=== PATIENT | female | born 1960 | race Caucasian/White ===

== ENCOUNTER → 2016-06-14 | Outpatient (CLI) | payer BC ==
[~2016-06-14] MED LIST: ABL5 PO; ACET650T49 PO; AMPH20CA3 PO; ARIP1TAB8 PO; BUPR200T2 PO; CALC600T14 PO; CHOL100010 PO; DICL-201 PO; GABA-112 PO; LAMO200T38 PO; PRLSR20 PO; SERT-234 PO; TRAZ100T29 PO; VITA10004 PO; WLLSR/150 PO; WLLXL/300 PO
[2016-06-14 13:27] LABS: ALT/SGPT 21 U/L (12-78); AST/SGOT 16 U/L (15-37); BLOOD UREA NITROGEN 20 mg/dl (7-18); BUN/CREATININE RATIO 18.3 (10-20); CALCIUM 8.7 mg/dl (8.5-10.1); CARBON DIOXIDE 31 mmol/L (21-32); CHLORIDE 105 mmol/L (98-107); GLUCOSE 92 mg/dl (70-99); GLUCOSE,FASTING 92 mg/dl (70-99); POTASSIUM 4.3 mmol/L (3.5-5.1); SODIUM 142 mmol/L (136-145)
[2016-06-14 13:37] LABS: ALB/GLOB RATIO 1.2 (0.9-2); ALKALINE PHOSPHATASE 71 U/L (45-117); CHOLESTEROL 251 mg/dl (0-200); CHOLESTEROL/HDL RATIO 4.3; HDL CHOLESTEROL 59 mg/dl; LDL CHOLESTEROL CALCULATED 172 mg/dl; TRIGLYCERIDES 102 mg/dl (0-150); VERY LOW DENSITY LIPOPROT CALC 20 mg/dl
== END | disposition home or self-care (01) ==
LOC: C.LAB1850 08:51
PROVIDERS: ATTEND Psychiatry & Neurology Psychiatry
DX: F33.2 Major depressive disorder, recurrent severe without psychotic features (principal); Z79.899 Other long term (current) drug therapy

== ENCOUNTER → 2016-08-05 | Outpatient (CLI) | payer BC | END | disposition home or self-care (01) | LOC: C.LAB1850 09:59 | PROVIDERS: ATTEND Obstetrics & Gynecology | DX: Z20.2 Contact with and (suspected) exposure to infections with a predominantly sexual mode of transmission (principal) ==

== ENCOUNTER → 2016-08-05 | Outpatient (CLI) | payer BC ==
[2016-08-09 10:49] LABS: CHLAMYDIA TRACH RNA*** NOT DETECTED (NOT DETECTED); GC (NEIS GONORRHOEAE)RNA** NOT DETECTED (NOT DETECTED)
== END | disposition home or self-care (01) ==
LOC: C.LABSPEC 13:26
PROVIDERS: ATTEND Obstetrics & Gynecology
DX: Z20.2 Contact with and (suspected) exposure to infections with a predominantly sexual mode of transmission (principal)

== ENCOUNTER → 2016-08-05 | Outpatient (CLI) | payer BC | END | disposition home or self-care (01) | LOC: C.PAPS 15:45 | PROVIDERS: ATTEND Obstetrics & Gynecology | DX: Z01.419 Encounter for gynecological examination (general) (routine) without abnormal findings (principal) ==

== ENCOUNTER 2017-01-15 08:47 | Emergency (ER) | payer OTHER ==
[~2017-01-15] VITALS: Ht 162.6 cm; Wt 78.0 kg
[~2017-01-15 08:47] MED LIST changes: -ACET650T49 PO; -AMPH20CA3 PO; -ARIP1TAB8 PO; -DICL-201 PO; -GABA-112 PO; -PRLSR20 PO; -VITA10004 PO; -WLLSR/150 PO; -WLLXL/300 PO
[2017-01-15 08:49] VITALS: TEMP 36.4; Ht 162.6 cm; Wt 78.0 kg
[2017-01-15] MEDS ORDERED: WLLSR/150 PO (09:24)
[2017-01-15] MEDS ORDERED: ACET650T49 PO (09:24)
[2017-01-15] MEDS ORDERED: AMPH20CA3 PO (09:24)
[2017-01-15] MEDS ORDERED: ARIP1TAB8 PO (09:24)
[2017-01-15] MEDS ORDERED: VITA10004 PO (09:24)
[2017-01-15] MEDS ORDERED: DICL-201 PO (09:24)
[2017-01-15] MEDS ORDERED: WLLXL/300 PO (09:24)
[2017-01-15] MEDS ORDERED: GABA-112 PO (09:24)
[2017-01-15] MEDS ORDERED: PRLSR20 PO (09:24)
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
--- NOTE | 2017-01-15 10:45 | DIAGNOSTIC IMAGING REPORT ---
LEFT HAND 3 VIEWS HISTORY: L hand ? glass FB at hypothenar eminence COMPARISON: None. FINDINGS: There is no fracture or dislocation. Soft tissues are unremarkable. No radiopaque foreign bodies. IMPRESSION: No radiopaque foreign bodies within the left hand. Electronically signed by: Jignesh Estrella M.D. 01/15/2017 10:44 AM Dictated Date/Time: 01/15/2017 10:43 AM
[2017-01-15 11:09] VITALS: BP 139/87; PULSE 65; O2SAT 99
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
== END 2017-01-15 11:11 | disposition home or self-care (01) ==
LOC: EDBD 08:47 → C.EDB 08:48
DX: S09.90XA Unspecified injury of head, initial encounter (principal); S60.512A Abrasion of left hand, initial encounter; V43.62XA Car passenger injured in collision with other type car in traffic accident, initial encounter; F41.9 Anxiety disorder, unspecified; F32.9 Major depressive disorder, single episode, unspecified; Z79.899 Other long term (current) drug therapy; Z88.5 Allergy status to narcotic agent; Z88.6 Allergy status to analgesic agent; Z88.8 Allergy status to other drugs, medicaments and biological substances

== ENCOUNTER 2020-01-29 05:04 | Observation (INO) ==
--- NOTE | 2020-01-15 14:42 | PAT Medication Instructions ---
Medication Instructions Date of Service January 15, 2020 Home Medications Medication Instructions Recorded Sherley Wong #1 ea 01/03/20 sertraline [Zoloft] 200 mg PO QAM trazodone 150 mg PO HS aripiprazole [Abilify] 10 mg PO QAM bupropion HCl [Wellbutrin SR] 150 mg PO QAM bupropion HCl [Wellbutrin XL] 300 mg PO QAM diclofenac sodium 75 mg PO BID gabapentin 200 mg PO HS omeprazole 20 mg PO QAM PRN cholecalciferol (vitamin D3) [Vitamin D3] 3,000 unit PO QAM lamotrigine 150 mg tablet 200 mg PO QAM ASK your surgeon for instructions diclofenac sodium 75 mg PO BID DO NOT take the morning of surgery cholecalciferol (vitamin D3) [Vitamin D3] 3,000 unit PO QAM Take morning of surgery With a small sip of water, OTHERWISE NOTHING TO EAT OR DRINK AFTER MIDNIGHT: sertraline [Zoloft] 200 mg PO QAM aripiprazole [Abilify] 10 mg PO QAM bupropion HCl [Wellbutrin SR] 150 mg PO QAM bupropion HCl [Wellbutrin XL] 300 mg PO QAM omeprazole 20 mg PO QAM PRN (if needed) lamotrigine 150 mg tablet 200 mg PO QAM Take evening before surgery trazodone 150 mg PO HS gabapentin 200 mg PO HS Other Notes If you have any questions please call us at [phone] or [phone] or [phone] or [phone]
--- NOTE | 2020-01-18 13:58 | Anesthesiology Consultation ---
Date of Service January 18, 2020 Assessment & Plan (1) Encounter for pre-operative examination: Per assessment on 01/17: Travel screen negative. No known COVID-19 positive contacts or current COVID-19 related symptoms. Patient denies plans for out of state travel or large gatherings for Thanksgiving. Will be following COVID precaution guidelines. Surgeon arranging preop COVID testing (scheduled 01/22; [place]). Awaiting results. Chart Review Chart Review: Acceptable Risk for Surgery and Patient seen in Pre Admission Testing Teaching & Discussion Pre-Anesthesia Teaching/Discussion Notes: Instructed NPO after midnight before surgery,except medications with 15 cc of water. Medication instructions provided according to the PAT guidelines. History Surgery Operation Date: 01/29/20 08:50 Proposed Procedures p Bilateral Total Knee Replacement - Heraclio De Souza MD Height/Weight Height: 5 ft 4 in Weight: 70.8 kg Allergies Allergy/AdvReac Type Severity Reaction Status Date / Time oxycodone [From Percocet] AdvReac Severe Vomiting Verified 01/07/20 14:33 acetaminophen AdvReac Unknown Vomiting Verified 01/15/20 14:40 codeine AdvReac Unknown Vomiting Verified 01/15/20 14:40 propoxyphene AdvReac Unknown GI upset Verified 01/15/20 14:40 Medications Home Medications Medication Instructions Recorded Confirmed Last Taken sertraline [Zoloft] 200 mg PO QAM #0 12/18/07 01/07/20 12/26/17 11:00 trazodone 150 mg PO HS #0 12/18/07 01/07/20 12/26/17 22:00 aripiprazole [Abilify] 10 mg PO QAM #0 01/15/17 01/07/20 12/26/17 11:00 bupropion HCl [Wellbutrin SR] 150 mg PO QAM #0 tab 01/15/17 01/07/20 12/26/17 11:00 bupropion HCl [Wellbutrin XL] 300 mg PO QAM #0 01/15/17 01/07/20 12/26/17 11:00 diclofenac sodium 75 mg PO BID #0 tab 01/15/17 01/07/20 12/26/17 20:00 gabapentin 200 mg PO HS #0 cap 01/15/17 01/07/20 12/26/17 20:00 omeprazole 20 mg PO QAM PRN #0 cap 01/15/17 01/07/20 12/26/17 11:00 cholecalciferol (vitamin D3) 3,000 unit PO QAM 12/12/17 01/07/20 12/26/17 11:00 [Vitamin D3] lamotrigine 150 mg tablet 200 mg PO QAM 08/06/19 01/07/20 Unknown Wheeled Walker #1 ea 01/03/20 01/03/20 Unknown Past Medical History Medical History Acid reflux controlled Anxiety JAYJAY II (cervical intraepithelial neoplasia II) "resolved" Depression DJD (degenerative joint disease) Hyperlipidemia Migraine Osteoarthritis Exercise / Class Metabolic Activity II 4-5 Yardwork/Stairs/Walk up hill Past Family History Family History Aunt Breast cancer Throat cancer Son Diabetes Father Cardiac disorder Mother Slow to wake up after anesthesia Diabetes Uncle Throat cancer Other No significant family history Denies family history of Ovarian cancer Colorectal cancer Uterine cancer Past Surgical History Surgical History History of arthroscopy R/L knee History of cataract surgery R/L History of colonoscopy History of dilatation and curettage History of open reduction and internal fixation (ORIF) procedure right ankle History of tooth extraction implants Hx of colposcopy with cervical biopsy Past Anesthesia History No Hx of Anesthesia Complications Mother: "slow to wake"/felt additionally related to lung disease Sister: severe PONV No similar issues for patient History of PONV No Hx of PONV and No Hx of Motion Sickness Social History Smoking Status: Never smoker Do You Dip or Chew Tobacco: No Hx Alcohol Use: No Hx Substance Use: Yes substance use type: marijuana Substance Use Type Other:: Marijuana use rare (vape/pipe)- every few months/advised [facility] protocol Review of Systems Patient denies chest pain, shortness of breath, dyspnea on exertion, fever, chills, cough, wheezing, palpitations. Physical Exam Vital Signs VITALS BP 131/83 P 73 TEMP 98.6 SP02 98%RA RESP 16 PHYSICAL Full neck and c-spine range of motion. Full TMJ range of motion. TMD 3 finger breaths Mallampati Score 1 Dentition: intact, upper front implants Lungs: clear throughout to auscultation Cardiac: regular rate and rhythm, no murmurs noted Spine: normal Carotid arteries: negative bruit Extremities: no edema Testing Laboratory Results 01/15/20 WBC 4.90 H/H 14.1/41.7 PLATELETS 255 SODIUM 139 POTASSIUM 4.0 CHLORIDE 104 CO2 30 BUN 20 CREATININE 0.81 GLUCOSE 94 PT 10.2 PTT 28.2 INR 1.0 T&S B+ Ab- Electrocardiogram Date: 04/19/19 SR at 60bpm. Possible inferior TN, probably old (possible inferior infarct noted on 10/29/2017 EKG). Per PAT visit 01/18/20, patient has good functional status/denies cardiopulmonary complaints. Chest X-Ray Date: 01/18/20 FINDINGS: Cardiomediastinal and hilar silhouettes are within normal limits. No pneumothorax, pleural effusion, airspace consolidation or overt pulmonary edema. Spondylitic spurring of the spine. Bones appear grossly intact. IMPRESSION: No acute process.
--- NOTE | 2020-01-18 14:51 | XRay Report ---
XR chest Pre-admission PA/Lat HISTORY: 59 years-old Female pat preoperative exam. No acute chest complaints COMPARISON: None TECHNIQUE: PA and lateral views of the chest FINDINGS: Cardiomediastinal and hilar silhouettes are within normal limits. No pneumothorax, pleural effusion, airspace consolidation or overt pulmonary edema. Spondylitic spurring of the spine. Bones appear amandeep sly intact. IMPRESSION: No acute process. ACT 112: Negative or not required by law. The above report was generated using voice recognition software. It may contain grammatical, syntax o r spelling errors. Electronically signed by: Genaro Epstein M.D. 01/18/2020 2:49 PM
[2020-01-29] MEDS ORDERED: TRANEXAMIC ACID 1,000 MG **IV Pre-op IV SCH (06:00)
[2020-01-29] MEDS ORDERED: METOCLOPRAMIDE HCL 10 MG TABLET PO SCH (06:00)
[2020-01-29] MEDS ORDERED: TRANEXAMIC ACID 1,000 MG **IV Intra-op IV SCH (06:00)
[2020-01-29] MEDS ORDERED: LR 60ML/HR IV SCH (06:00)
[2020-01-29] MEDS ORDERED: GABAPENTIN 600 MG DOSE PO SCH (06:00)
[2020-01-29] MEDS ORDERED: LR 500ML BOLUS, THEN 15ML/HR IV SCH (06:00)
[2020-01-29] MEDS ORDERED: BUPIVACAINE LIPOSOME/PF 266 MG, BUPIVACAINE/EPINEPHRINE 50 ML, SODIUM CHLORIDE 0.9% 30 ... INFIL SCH (06:00)
[2020-01-29] MEDS ORDERED: ceFAZolin 2000MG 2,000 MG/15 ML SYR IV SCH (06:00)
[2020-01-29] MEDS ORDERED: ACETAMINOPHEN 500 MG TAB PO SCH (06:00)
[2020-01-29] MEDS ORDERED: EPINEPHrine INJ 1 MG/ML AMP ONE ×2 (06:21→06:41)
[2020-01-29] MEDS ORDERED: BUPIVACAINE 0.5 % 5 MG/1 ML PF 10ML VIAL ONE (06:21)
[2020-01-29] MEDS ORDERED: ROPIVACAINE 0.5% 5 MG/ML 30 ML VIAL ONE (06:22)
[2020-01-29] MEDS ORDERED: MIDAZOLAM HCL 1 MG/ML 2ML VIAL ONE (06:31)
[2020-01-29] MEDS ORDERED: DEXAMETHASONE SOD INJ 4 MG/ML VIAL ONE (06:32)
[2020-01-29] MEDS ORDERED: ONDANSETRON INJ 2 MG/ML 2 ML VIAL ONE (06:32)
[2020-01-29] MEDS ORDERED: PROPOFOL IV EMULSION 10 MG/ML 20 ML VIAL IV ONE (06:32)
[2020-01-29] MEDS ORDERED: LIDOCAINE HCL 2% 2 ML VIAL/AMP(20MG/ML) INFIL ONE (06:32)
[2020-01-29] MEDS ORDERED: SODIUM CHLORIDE 0.9% PF 50 ML VIAL ONE (06:40)
[2020-01-29] MEDS ORDERED: BUPIVACAINE LIPOSOME 1.3% 266 MG/20 ML VIAL ONE (06:40)
[2020-01-29] MEDS ORDERED: BACITRACIN INJ 50,000 UNIT VIAL ONE ×2 (06:41→06:53)
[2020-01-29] MEDS ORDERED: BUPIVACAINE 0.25% 30 ML VIAL ONE (06:41)
--- NOTE | 2020-01-29 06:51 | History & Physical Bridge Note ---
Date of Service January 29, 2020 History & Physical Bridge Note I have examined the patient, reviewed the History & Physical and in the interval since the performance of the History & Physical I have noted the following changes of clinical significance: no changes noted
[2020-01-29] MEDS ORDERED: fentaNYL citrate 100 MCG/2 ML VIAL ONE (07:08)
[2020-01-29] MEDS ORDERED: fentaNYL citrate 100 MCG/2 ML VIAL IV PRN (07:31)
[2020-01-29] MEDS ORDERED: NALOXONE HCL 0.4 MG/1 ML VIAL/CARP IV PRN ×2 (07:31→12:31)
[2020-01-29] MEDS ORDERED: FLUMAZENIL 0.1 MG/1 ML 10 ML VIAL IV PRN (07:31)
[2020-01-29] MEDS ORDERED: ATROPINE SULFATE 0.1 MG/ML 10ML SYR IV PRN (07:31)
[2020-01-29] MEDS ORDERED: PROMETHAZINE HCL 12.5 MG in SODIUM CHLORIDE 0.9% 50 ML IV PRN (07:31)
[2020-01-29] MEDS ORDERED: HYDROmorphone INJ 1 MG/ML SYRINGE IV PRN (07:31)
[2020-01-29] MEDS ORDERED: ePHEDrine sulfate 50 MG/ML AMP IV PRN (07:31)
[2020-01-29] MEDS ORDERED: ONDANSETRON INJ 2 MG/ML 2 ML VIAL IV PRN ×2 (07:31→12:31)
[2020-01-29] MEDS ORDERED: LABETALOL HCL IV 5 MG/ML 20ML IV PRN (07:31)
[2020-01-29] MEDS ORDERED: GLYCOPYRROLATE 0.2 MG/ML VIAL ONE (07:55)
[2020-01-29] MEDS ORDERED: HYDROmorphone INJ 2 MG/ML SYR/VIAL ONE (07:57)
[2020-01-29] MEDS ORDERED: ePHEDrine sulfate 50 MG/ML SYR ONE (09:28)
[2020-01-29] MEDS ORDERED: KETOROLAC 30 MG/ML VIAL ONE (10:26)
--- NOTE | 2020-01-29 10:37 | Post Operative Brief Note ---
PG Immediate Post Op with CF Date of Surgery January 29, 2020 Pre & Post Diagnosis Operation Date: 01/29/20 07:00 Pre-Op Diagnosis: Bilateral Knee Advanced Degenerative Joint Disease Post-Op Diagnosis: Bilateral Knee Advanced Degenerative Joint Disease I identified the patient and participated in the time-out.: Yes Procedure Operation Date: 01/29/20 07:00 Actual Procedures p Bilateral Total Knee Arthroplasty(Bilateral) - Heraclio De Souza MD Surgeon Heraclio De Souza MD Guide Foreign Tour [place], PAC Estimated Blood Loss 100 Findings Consistent with Post-Op Diagnosis Fluids 1400 cc Specimens Specimen Description: A. Left Knee Bone and Tissue B. Right Knee Bone and Tissue Drains Overton Catheter Anesthesia Type General Regional Complications none Disposition Accompanied Patient To Recovery: No Disposition: Recovery Room
--- NOTE | 2020-01-29 11:08 | Operative Report ---
Post Operative Report Pre & Post Diagnosis Operation Date: 01/29/20 07:00 Pre-Op Diagnosis: Bilateral Knee Advanced Degenerative Joint Disease Post-Op Diagnosis: Bilateral Knee Advanced Degenerative Joint Disease I identified the patient and participated in the time-out.: Yes Procedure Operation Date: 01/29/20 07:00 Actual Procedures p Bilateral Total Knee Arthroplasty(Bilateral) - Heraclio De Souza MD Surgeon Heraclio De Souza MD Trouble Dispatcher [place], PAC Estimated Blood Loss 100 Findings Consistent with Post-Op Diagnosis Operative findings revealed advanced bilateral knee DJD. In the left knee she had extensive grade 4 [id number] disease and eburnation of the anteromedial compartment. She had a chronic ACL deficiency. She had a fixed varus deformity to her knee and about a 10 to 15 degree flexion contracture. Her knee was quite stiff with only about 100 degrees of knee flexion. and flexion to about 105 degrees.The right knee revealed similar extensive grade 4 changes the medial compartment also extensive grade 4 changes of the patellofemoral compartment. She had a similar fixed varus deformity to her knee with a 10 to 15 degree flexion contracture Fluids 1400 cc. Specimens Bilateral knee sent for pathology. Drains None. Anesthesia Type General Regional Complications none Disposition Accompanied Patient To Recovery: No Disposition: Recovery Room Indications Patient is a 59-year-old female said a long history of knee problems. She has had a history of bilateral knee arthroscopy done to 10 to 15 years ago with a microfracture done of left knee. Over the years she developed increased pain discomfort deformity and stiffness in both knees. The left knee is a bit worse than the right. She failed all conservative measures. She elected proceed with a bilateral knee replacements. Description of Procedure Right sided operative implants consist of: 1. Biomet Vanguard size 67.5 right posterior stabilized femoral component. 2. Biomet size 71 tibial tray. 3. 12 mm posterior stabilized polyethylene insert. 4. 31 x 8 all polypatella. Left side implants consisted of: 1. Biomet Vanguard size 67.5 left posterior stabilized femoral component. 2. Biomet size 71 tibial tray. 3. 12 mm posterior stabilized polyethylene insert. 4. 31 x 8 all polypatella. The patient was taken to the operating identified and placed on the operating table supine position but all contact areas were properly padded. IV antibiotics were provided by the anesthesia team. Bilateral abductor canal blocks had been provided in the holding area. A spinal was attempted but unsuccessful. Therefore a general anesthetic was implemented. A Overton catheter was placed in sterile fashion. Bilateral thigh tourniquet was then placed in both lower extremities were then prepped and draped in usual sterile fashion. Attention was first drawn on the left leg. Left leg was elevated exsanguinated with use of an Esmarch and turns placed at 3 mmHg. An anterior approach to the left knee was then performed through a longitudinal incision centered over the patella. Sharp dissection was carried through subcutaneous tissue down the extensor mechanism. A medial parapatellar arthrotomy incision was made. Some subperiosteal dissection was carried out medially. The fat pad was fairly scarred to the back of the patella tendon I had to remove this from the posterior aspect of the patella tendon. The lateral patellofemoral ligament was released. Patella was subluxated laterally and the knee was flexed. The osteophytes were taken off distal femur. The ACL was absent. The PCL was released from the distal femur. The tibia subluxated anteriorly. The external tibial alignment jig was then placed in the interface the tibia and adjusted 14 mm medially. Proximal tibial cut was made to be essentially flush with the most deficient aspect medial till plateau. Some osteophytes were taken off medial and posterior medially. The tibia was then sized to a size 71. Attention drawn the femur. The distal femur exam with a sharp drop with intramedullary canal was suction. A left 5 degree valgus cutting guide was placed. The distal femoral cutting block was pinned in place. Distal femoral cut was made to take an additional 3 mm of bone off distal femur. The femur was then sized to a size 67.5. We downsized this almost an entire size. The AP cutting block was pinned parallel to the epicondylar axis which was 5 degrees of external rotation. The anterior cut, anterior chamfer, posterior cut, posterior chamfer cuts were made. The box cutting guide was placed in just slight lateral and the box cut was made. The knee was flexed. The remnants of the medial lateral menisci were excised. The osteophytes were taken off the posterior aspect the femur. A trial femoral component was placed. The tibial tray was pinned in maximum external rotation and the drill and stem punch were used to create defect in proximal tibia for the tibial tray. The knee was then trialed and the 12 mm insert fit most approp riately. Attention drawn the patella. The patella was cleaned of all soft tissues. Patella thickness measured 21 mm in thickness was cut down to 14. Was sized to a size 31 patella. Locals were drilled for 31 patella. The lateral osteophyte was removed. Patella button was placed. Knee was taken through range of motion patella tracked nicely with no thumbs test. Attention drawn to place the permanent components. All trial implants were removed. A bone plug was placed in the distal femur limit blood loss. L batch Palacos G cement was mixed. Biomet Vanguard size 67.5 left posterior stabilized femoral component, a size 71 tibial tray, a 12 mm Po stabilized polyethylene insert, and a 31 x 8 all polypatella then cemented in place. The knee was brought out into full extension total cement hardened. A final cement check was then performed. Pericapsular tissues were injected with a total of 10 cc of Exparel, 15 cc of normal saline, 25 cc of quarter percent Marcaine with epinephrine. The patient did receive 1 g tranexamic acid. The tourniquet was then let down for turn time 62 minutes. Hemostasis assured use electrocautery. The wounds once again irrigated. Extensor mechanism closed with combination 1 PDS suture #1 Vicryl suture in [id number] fashion. Extensor mechanism checked found to be intact with subcutaneous tissue then closed with 2 Dexon suture in a buried interrupted fashion skin was closed skin magaly. Leg was then cleaned dried a sterile dressed composed Xeroform, 4 x 4's, sterile cast padding and an Guru bandage were applied. During the subcutaneous tissue closure of the left knee a similar procedure was begun on the right leg. The right leg was elevated exsanguinated use of an Esmarch and turns placed at 300 mmHg. An anterior approach to the right knee was then performed through longitudinal incision centered over the patella. Sharp dissection was got through subcutaneous tissue down to the extensor mechanism. A medial parapatellar arthrotomy incision was made. Some subperiosteal dissection was carried out medially. The fat pad was resected from each patella tendon. Once again the past fat pad was fairly scarred in. The lateral patellofemoral ligament was released. Patella was subluxated laterally and the knee was flexed. The osteophytes were taken off distal femur. The ACL was absent. The PCL was released from the distal femur the tibia subluxated anteriorly. External tibial alignment jig was then placed in the interface the tibia and adjusted 14 mm medially. Proximal tibial cut was made to essentially flush with the most deficient aspect of the medial tibial plateau. Some osteophytes taken off medial and posterior medially. Tibia sized to a size 71. Attention drawn the femur. The distal femur turned with a sharp drop with intramedullary canal was suction. A right 5 degree valgus cutting guide was placed. Distal femoral cutting block was pinned in place. The distal femoral cut was made to take an additional 3 mm of bone off distal femur. The femur was then sized to a size 67.5. We did downsize this almost an entire size. The AP cutting block was pinned parallel to the epicondylar axis which was 4 degrees of external rotation. The anterior cut, anterior chamfer, posterior cut, posterior chamfer cuts were made. Box cutting guide was placed in a just slight lateral box cut was made. The knee was flexed. The remnants of medial lateral menisci were excised. The osteophytes were taken off the posterior aspect of femur. A trial femoral component was placed but the tibial tray was pinned in maximum external rotation and the drill and stem punch were used to create defect in proximal tip for the tibial tray. Knee was then trialed the 12 mm insert fit most appropriately. Attention drawn to placing the permanent components. All trial components were removed. A bone plug was placed in the distal femur limit blood loss put a double batch Palacos G cement was mixed. Biomet Vanguard size 67.5 right posterior stabilized femoral component, size 71 tibial tray, a 12 mm posterior stabilized polyethylene insert, and a 31 x 8 all polypatella were then cemented in place. Knee was brought out into full extension total cement hardened. Final cement checkup was then performed. The pericapsular tissues were injected with 50 cc of a combination of 20 cc of Exparel, 15 cc normal saline, 25 cc of quarter percent Marcaine with epinephrine. The tourniquet was then let down for turn time 64 minutes. Hemostasis reduced electrocautery. The wound was once again irrigated. The extensor macros then closed with combination 1 PDS suture #1 Vicryl suture in a [id number] fashion. Extensor mechanism was then checked and found to be intact the subcutaneous tissue then closed with 2 Dexon suture in a buried interrupted fashion skin was closed skin magaly. Leg was then cleaned dried a sterile dressing both Xeroform, 4 fourths, sterile cast padding and Guru bandage were aura lied. A similar dressing was added to the left leg with some additional soft roll and Guru bandage. The patient was then brought out of general anesthesia and transferred to the recovery room in stable condition. The patient tolerated procedure well and there were no complications. Jamari Dodson, my physician assistant professor of biology, was present for the entire procedure. His assistance was essential and required for appropriate patient positioning, prepping and draping, surgical exposure, performing the technical details of the operation, placement the implants, closure of the wound, and placement of the sterile bandage. I attest to the content of the Intraoperative Record and any orders documented therein. Any exceptions are noted below.
--- NOTE | 2020-01-29 12:02 | Anesthesiology Progress Note ---
Date of Service January 29, 2020 Anesthesia Post Procedure Vital Signs Vital Signs: Temp Pulse Pulse Resp BP Pulse Ox 01/29/20 11:50 37.0 C 76 13 126/75 96 01/29/20 11:40 37.0 C 84 17 120/77 99 01/29/20 11:30 37.0 C 82 8 L 104/82 100 01/29/20 11:20 86 12 126/68 100 01/29/20 11:10 79 19 118/71 100 01/29/20 11:00 75 14 122/73 100 01/29/20 10:50 73 14 115/64 100 01/29/20 10:43 36.3 C L 76 15 112/65 99 01/29/20 06:18 61 18 160/82 H 99 01/29/20 05:26 37.1 C 58 L 18 130/98 99 Transfer of Care Handoff Completed per policy Notes Mental Status: alert / awake / arousable Patient Amnestic to Procedure: Yes Nausea / Vomiting: adequately controlled Pain: adequately controlled Airway Patency, RR, SpO2: stable & adequate BP & HR: stable & adequate Hydration State: stable & adequate Anesthetic Complications: no major complications apparent
--- NOTE | 2020-01-29 12:11 | XRay Report ---
LEFT KNEE 2 VIEWS History: Left total knee arthroplasty. Degenerative arthritis. Postop. FINDINGS: The patient is status post a left total knee arthroplasty. The hardware is intact. No fract ure or dislocation. Skin magaly are in place. IMPRESSION: Left total knee arthroplasty. No evidence for hardware complication. ACT 112: Negative or not required by law. Electronically signed by: Jignesh Estrella M.D. 01/29/2020 12:10 PM
--- NOTE | 2020-01-29 12:14 | XRay Report ---
RIGHT KNEE 2 VIEWS History: Right total knee arthroplasty. Degenerative arthritis. Postop. FINDINGS: The patient is status post a right total knee arthroplasty. The hardware is intact. No frac ture or dislocation. Skin magaly are in place. IMPRESSION: Right total knee arthroplasty. No evidence for hardware complication. ACT 112: Negative or not required by law. Electronically signed by: Jignesh Estrella M.D. 01/29/2020 12:13 PM
[2020-01-29] MEDS: SODIUM CHLORIDE 0.9% 1000ML 1,000 ML IV SCH ×2 (12:30→22:50)
[2020-01-29] MEDS ORDERED: METOCLOPRAMIDE HCL INJ 5 MG/ML 2 ML VIAL IV PRN (12:31)
[2020-01-29] MEDS ORDERED: diphenhydrAMINE Capsule 25 MG CAP PO PRN (12:31)
[2020-01-29] MEDS ORDERED: MAGNESIUM HYDROXIDE SUSP 30 ML UDC PO PRN (12:31)
[2020-01-29] MEDS ORDERED: bisacodyL 10 MG SUPP PR PRN (12:31)
[2020-01-29] MEDS ORDERED: HYDROmorphone INJ 0.5 MG/0.5 ML SYR IV PRN (12:31)
[2020-01-29] MEDS ORDERED: ALUMINUM/MAGNESIUM SUSP 30 ML UDC PO PRN (12:31)
[2020-01-29] MEDS ORDERED: PANTOprazole 40 MG TAB PO PRN (12:46)
[2020-01-29] MEDS: KETOROLAC 30 MG/ML VIAL IV SCH ×2 (13:50→17:19)
[2020-01-29] MEDS: ACETAMINOPHEN 500 MG TAB PO SCH ×2 (13:50→21:00)
[2020-01-29] MEDS ORDERED: TRANEXAMIC ACID / 0.7% NACL 1,000 MG/100 ML BAG IV SCH (17:00)
[2020-01-29] MEDS: ceFAZolin 1000MG 1,000 MG/7.5 ML SYR IV SCH (17:16)
[2020-01-29] MEDS: ASCORBIC ACID 500 MG TAB PO SCH (17:18)
[2020-01-29] MEDS: FERROUS GLUCONATE 324 MG TAB PO SCH (17:19)
[2020-01-29] MEDS: Scopolamine CHECK PATCH PLACEMENT SCH (17:19)
[2020-01-29] MEDS: traZODone HCL 50 MG TAB PO SCH (20:58)
[2020-01-29] MEDS: DOCUSATE SODIUM 100 MG CAP PO SCH (20:58)
[2020-01-29] MEDS: GABAPENTIN 100 MG CAP PO SCH (20:58)
[2020-01-29] MEDS: SENNA 8.6 MG TAB PO SCH (20:59)
[2020-01-29] MEDS: TAPENTADOL HCL ER 50 MG TABCR PO SCH (20:59)
[2020-01-29] MEDS: ASPIRIN 81 MG ECTAB PO SCH (20:59)
[2020-01-30] MEDS: ceFAZolin 1000MG 1,000 MG/7.5 ML SYR IV SCH (00:01)
[2020-01-30] MEDS: Scopolamine CHECK PATCH PLACEMENT SCH ×4 (00:01→23:59)
[2020-01-30] MEDS: KETOROLAC 30 MG/ML VIAL IV SCH ×5 (00:01→23:59)
[2020-01-30] MEDS: ACETAMINOPHEN 500 MG TAB PO SCH ×3 (05:23→21:58)
[2020-01-30 05:48] LABS: Hematocrit (blood only) 30.7 % (37-47); Hemoglobin 10.2 g/dL (12.0-16.0); Mean Corpuscular Hemoglobin 31.3 pg (25-34); Mean Corpuscular Hgb Conc 33.2 g/dL (32-36); Mean Corpuscular Volume 94.2 fL (80-100); Mean Platelet Volume 9.1 fL (7.4-10.4); Platelet Count 179 K/uL (130-400); RDW Coefficient of Variation 12.7 % (11.5-14.5); RDW Standard Deviation 43.7 fL (36.4-46.3); Red Blood Count 3.26 M/uL (4.2-5.4); White Blood Count 8.54 K/uL (4.8-10.8)
[2020-01-30 06:25] LABS: BUN Creatinine Ratio 17.6 (10-20); Calcium 8.2 mg/dl (8.5-10.1); Creatinine Clr Calc Pharmacy 68.9 ml/min; Est GFR (African American) 86.9; Potassium 3.8 mmol/L (3.5-5.1)
[2020-01-30] MEDS ORDERED: dexAMETHasone 10 MG in SYRINGE 0 ML IV SCH (08:00)
[2020-01-30] MEDS ORDERED: buPROPion SR 150 MG TABCR PO SCH (09:00)
[2020-01-30] MEDS: oxyCODONE HCL IR 5 MG TAB (IMMEDIATE RELEASE) PO PRN (09:03)
[2020-01-30] MEDS: DOCUSATE SODIUM 100 MG CAP PO SCH ×2 (09:03→21:59)
[2020-01-30] MEDS: TAPENTADOL HCL ER 50 MG TABCR PO SCH ×2 (09:03→21:58)
[2020-01-30] MEDS: ASPIRIN 81 MG ECTAB PO SCH ×2 (09:04→21:58)
[2020-01-30] MEDS: lamoTRIgine 100 MG TAB PO SCH (09:04)
[2020-01-30] MEDS: FERROUS GLUCONATE 324 MG TAB PO SCH ×2 (09:04→17:32)
[2020-01-30] MEDS: ARIPiprazole 10 MG TAB PO SCH (09:05)
[2020-01-30] MEDS: ASCORBIC ACID 500 MG TAB PO SCH ×2 (09:05→17:32)
[2020-01-30] MEDS: MULTIVITAMIN TAB PO SCH (09:05)
[2020-01-30] MEDS: buPROPion XL 300 MG TABCR PO SCH (09:05)
[2020-01-30] MEDS: CHOLECALCIFEROL 1,000 UNITS 25 MCG TAB PO SCH (09:05)
[2020-01-30] MEDS: SERTRALINE HCL 100 MG TABLET PO SCH (09:05)
--- NOTE | 2020-01-30 19:42 | Progress Notes ---
DATE: 01/30/2020 SUBJECTIVE: A 59-year-old white female postop day 1 from bilateral knee replacement. She is doing remarkably well. Pain has been pretty well controlled. No chest pain or shortness of breath. Not feeling dizzy or lightheaded. OBJECTIVE: VITAL SIGNS: Temperature 37.2. Vital signs stable. GENERAL: Shows a pleasant, middle-aged female. She is lying in bed and looks pretty comfortable. LUNGS: Clear to auscultation. HEART: Has a regular rate and rhythm. ABDOMEN: Soft, nontender, nondistended. EXTREMITIES: Grossly neurovascularly intact except as follows: Examination of both lower extremities reveals the dressing to be clean, dry and intact. Legs are well aligned. She can dorsiflex and plantarflex both feet appropriately. She is neurologically intact. She has got brisk refill. LABORATORY DATA: Hemoglobin is 10.2. Hematocrit 30.7. Electrolytes are stable. ASSESSMENT: A 59-year-old white female postoperative day 1 from bilateral knee replacements, doing quite well. Pain has been controlled. Therapy went reasonably well. PLAN: 1. DVT prophylaxis including thigh-high TEDs, SCDs, and aspirin twice a day. 2. PT/OT. Weight bear as tolerated. Bilateral knee protocol. 3. Pain control, doing okay with current pain regimen. 4. Disposition: Plan to discharge to home with some home health likely later tomorrow after therapy.
[2020-01-30] MEDS: traZODone HCL 50 MG TAB PO SCH (21:58)
[2020-01-30] MEDS: SENNA 8.6 MG TAB PO SCH (21:58)
[2020-01-30] MEDS: GABAPENTIN 100 MG CAP PO SCH (21:58)
[2020-01-31] MEDS: ACETAMINOPHEN 500 MG TAB PO SCH (05:23)
[2020-01-31] MEDS: KETOROLAC 30 MG/ML VIAL IV SCH (05:24)
[2020-01-31] MEDS: oxyCODONE HCL IR 5 MG TAB (IMMEDIATE RELEASE) PO PRN (06:10)
[2020-01-31] MEDS: FERROUS GLUCONATE 324 MG TAB PO SCH (08:14)
[2020-01-31] MEDS: buPROPion XL 300 MG TABCR PO SCH (08:14)
[2020-01-31] MEDS: lamoTRIgine 100 MG TAB PO SCH (08:14)
[2020-01-31] MEDS: CHOLECALCIFEROL 1,000 UNITS 25 MCG TAB PO SCH (08:14)
[2020-01-31] MEDS: ASPIRIN 81 MG ECTAB PO SCH (08:14)
[2020-01-31] MEDS: MULTIVITAMIN TAB PO SCH (08:14)
[2020-01-31] MEDS: ARIPiprazole 10 MG TAB PO SCH (08:14)
[2020-01-31] MEDS: SERTRALINE HCL 100 MG TABLET PO SCH (08:14)
[2020-01-31] MEDS: ASCORBIC ACID 500 MG TAB PO SCH (08:14)
[2020-01-31] MEDS: Scopolamine CHECK PATCH PLACEMENT SCH (08:15)
--- NOTE | 2020-01-31 08:19 | Progress Notes ---
DATE: 01/31/2020 SUBJECTIVE: A 59-year-old white female postop day 2 from bilateral knee replacements. She is doing quite well. Had a pretty good night. Pain is controlled. No chest pain or shortness of breath. Not feeling dizzy or lightheaded. OBJECTIVE: VITAL SIGNS: Temperature 36.8. Vital signs stable. GENERAL: Shows a pleasant, middle-aged female. She is lying in bed and resting comfortably this morning. EXTREMITIES: Examination of both legs reveals the dressings to be clean, dry and intact. Legs are well aligned. Swelling is fairly mild. Calves are soft and supple. She is neurologically intact. ASSESSMENT: A 59-year-old white female postop day 2 from bilateral knee replacements, doing quite well. Pain is controlled. She is neurologically intact. PLAN: 1. DVT prophylaxis including thigh-high TEDs, SCDs, and aspirin twice a day. 2. PT/OT. Weight bear as tolerated. Bilateral knee protocol. 3. Pain control, doing well with current pain regimen. 4. Disposition: Plan to discharge to home with some home health likely later today.
[2020-01-31] MEDS: DOCUSATE SODIUM 100 MG CAP PO SCH (08:21)
[2020-01-31] MEDS: TAPENTADOL HCL ER 50 MG TABCR PO SCH (08:22)
[2020-01-31] MEDS ORDERED: buPROPion XL 150 MG TABCR PO SCH (09:00)
[2020-01-31] MEDS ORDERED: CeleBREX 200 MG CAP PO SCH (21:00)
== END 2020-01-31 11:42 | disposition home health service (06) ==
LOC: 3E 05:04 → ASU 05:04

== ENCOUNTER 2022-06-18 17:28 | Inpatient (IN) ==
[2022-06-18] MEDS ORDERED: fentaNYL citrate PF 100 MCG/2 ML VIAL IM ONE (17:58)
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
--- NOTE | 2022-06-18 18:21 | XRay Report ---
SINGLE VIEW PELVIS; LEFT HIP 2 VIEWS CLINICAL HISTORY: Fall with left hip injury. FINDINGS: An AP view of the pelvis with AP and crosstable lateral views of the left hip are correlate d with pelvic CT dated 06/04/2020. The skeletal structures are osteopenic. There is no radiographic bud dence of acute fracture involving the right hip or the bony pelvis. There is a comminuted and mildly displaced intertrochanteric fracture of the left proximal femur with overlying soft tissue edema. The re are small displaced fragments. Mild arthritic change and joint space narrowing is seen in the hips . There is mild degenerative sclerosis of the sacroiliac joints. Lumbosacral spondylosis is partially imaged. IMPRESSION: Intertrochanteric fracture of the left proximal femur as above. Electronically signed by: Levar Rosales M.D. 06/18/2022 6:19 PM
--- NOTE | 2022-06-18 18:23 | XRay Report ---
SINGLE VIEW CHEST CLINICAL HISTORY: Fall. Hip fracture. Preoperative examination FINDINGS: An AP, portable, supine chest radiograph is compared to study dated 01/18/2020. The cardiom ediastinal silhouette is unremarkable. The lungs and pleural spaces are clear. No pneumothorax is see n. The skeletal structures are osteopenic. The bony thorax is grossly intact. Mild degenerative tilley e is noted in the thoracic spine. IMPRESSION: No active disease in the chest. ACT 112: Negative or not required by law. Electronically signed by: Lvear Rosales M.D. 06/18/2022 6:22 PM
[2022-06-18 18:58] LABS: Basophils # (auto) 0.04 K/uL (0-0.2); Basophils % (auto) 0.3 %; Eosinophils # (auto) 0.08 K/uL (0-0.50); Eosinophils % (auto) 0.7 %; Hematocrit (blood only) 40.2 % (37.0-47.0); Immature Granulocytes # (auto) 0.04 K/uL (0.01-0.20); Immature Granulocytes % (auto) 0.3 %; Lymphocytes # (auto) 1.24 K/uL (1.2-3.4); Lymphocytes % (auto) 10.1 %; Mean Corpuscular Hgb Conc 34.8 g/dL (32.0-36.0); Mean Platelet Volume 9.3 fL (9.4-12.4); Monocytes # (auto) 0.55 K/uL (0.11-0.59); Monocytes % (auto) 4.5 %; Neutrophils # (auto) 10.32 K/uL (1.40-6.50); Neutrophils % (auto) 84.1 %; Platelet Count 227 K/uL (130-400); RDW Coefficient of Variation 12.2 % (11.5-14.5); RDW Standard Deviation 41.5 fL (36.4-46.3); Red Blood Count 4.37 M/uL (4.20-5.40); White Blood Count 12.27 K/ul (4.8-10.8)
[2022-06-18 19:17] LABS: Albumin Globulin Ratio 1.7 (0.9-2); Albumin Level 4.3 gm/dl (3.4-5.0); BUN Creatinine Ratio 14.6 (10-20); Bilirubin,Total 0.4 mg/dl (0.2-1.0); Calcium 9.6 mg/dl (8.6-10.3); Creatinine Clr Calc Pharmacy 56.4 ml/min; Est GFR (African American) 67.5 ml/min; Est GFR (Non-African American) 58.2 ml/min; Globulin 2.6 gm/dl (2.5-4.0); Total Protein 6.9 gm/dl (6.0-8.3)
[2022-06-18] MEDS ORDERED: SODIUM CHLORIDE 0.9% 1000ML 1,000 ML IV ONE (19:23)
[2022-06-18] MEDS ORDERED: KETOROLAC TROMETHAMINE 15 MG/ML VIAL IV ONE (20:19)
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
[2022-06-18] MEDS ORDERED: PROMETHAZINE HCL 6.25 MG in SODIUM CHLORIDE 0.9% 50 ML IV PRN (20:24)
[2022-06-18] MEDS ORDERED: LORazepam 0.5 MG TAB PO PRN (20:25)
[2022-06-18] MEDS: MoRPHine SULFATE 2 MG/ML CARP IV PRN ×2 (20:41→23:55)
[2022-06-18] MEDS ORDERED: ACETAMINOPHEN 325 MG TAB PO PRN (23:39)
[2022-06-19] MEDS: GABAPENTIN 100 MG CAP PO SCH ×2 (00:14→19:53)
[2022-06-19] MEDS: traZODone HCL 50 MG TAB PO SCH ×2 (00:14→19:53)
[2022-06-19] MEDS: MoRPHine SULFATE 2 MG/ML CARP IV PRN ×2 (05:48→18:26)
[2022-06-19 06:31] LABS: Basophils # (auto) 0.02 K/uL (0-0.2); Basophils % (auto) 0.3 %; Eosinophils # (auto) 0.07 K/uL (0-0.50); Hematocrit (blood only) 34.9 % (37.0-47.0); Hemoglobin 12.2 g/dl (12.0-16.0); Immature Granulocytes # (auto) 0.02 K/uL (0.01-0.20); Immature Granulocytes % (auto) 0.3 %; Lymphocytes # (auto) 1.76 K/uL (1.2-3.4); Lymphocytes % (auto) 25.3 %; Mean Corpuscular Hemoglobin 32.1 pg (25.0-34.0); Mean Corpuscular Volume 91.8 fL (80.0-100.0); Mean Platelet Volume 9.7 fL (9.4-12.4); Monocytes # (auto) 0.63 K/uL (0.11-0.59); Neutrophils # (auto) 4.47 K/uL (1.40-6.50); Neutrophils % (auto) 64.1 %; Platelet Count 183 K/uL (130-400); RDW Coefficient of Variation 12.2 % (11.5-14.5); RDW Standard Deviation 41.1 fL (36.4-46.3); White Blood Count 6.97 K/ul (4.8-10.8)
[2022-06-19 06:56] LABS: BUN Creatinine Ratio 18.6 (10-20); Calcium 8.3 mg/dl (8.6-10.3); Creatinine Clr Calc Pharmacy 59.3 ml/min; Est GFR (African American) 72.5 ml/min; Est GFR (Non-African American) 62.6 ml/min; Potassium 3.7 mmol/L (3.5-5.1)
[2022-06-19] MEDS ORDERED: SODIUM CHLORIDE 0.9% 1000ML 1,000 ML IV SCH (08:00)
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
--- NOTE | 2022-06-19 09:37 | Anesthesiology Consultation ---
Date of Service June 19, 2022 Assessment & Plan (1) Encounter for pre-operative examination: Chart Review Chart Review: Acceptable Risk for Surgery History Surgery Operation Date: 06/19/22 10:00 Proposed Procedures p Intramedullary Gus Femur(Left) - Gerardo Ferrari MD Height/Weight Height: 5 ft 4 in Weight: 74.1 kg Allergies Allergy/AdvReac Type Severity Reaction Status Date / Time codeine AdvReac Intermediate Vomiting Verified 06/18/22 20:12 oxycodone [From Percocet] AdvReac Intermediate Vomiting Verified 06/18/22 20:12 propoxyphene AdvReac Intermediate GI upset Verified 06/18/22 20:12 Medications Home Medications Medication Instructions Recorded Confirmed Last Taken sertraline 100 mg tablet (Zoloft) 200 mg PO QAM ##0 12/18/07 06/18/22 06/17/22 trazodone 150 mg tablet 150 mg PO HS ##0 12/18/07 06/18/22 06/17/22 bupropion HCl 300 mg 24 hr tablet, 300 mg PO QAM ##0 01/15/17 06/18/22 06/17/22 extended release (Wellbutrin XL) gabapentin 100 mg capsule 200 mg PO HS #0 caps 01/15/17 06/18/22 06/17/22 bupropion HCl 150 mg 24 hr tablet, 150 mg PO QAM 01/30/20 06/18/22 06/17/22 extended release vibegron 75 mg tablet (Gemtesa) 75 mg PO DAILY #90 tabs 01/27/22 06/18/22 06/17/22 diclofenac sodium 75 mg 75 mg PO BID PRN pain #60 tabs 06/04/22 06/18/22 Unknown tablet,delayed release amoxicillin 500 mg tablet 2,000 mg PO DIRECTED PRN 1 HOUR 06/18/22 06/18/22 Unknown PRIOR TO DENTAL APPT. aripiprazole 15 mg tablet 15 mg PO QAM 06/18/22 06/18/22 06/17/22 cholecalciferol (vitamin D3) 25 75 mcg PO DAILY 06/18/22 06/18/22 06/17/22 mcg (1,000 unit) capsule (Vitamin D3) lamotrigine 200 mg tablet 200 mg PO QAM 06/18/22 06/18/2223 Active Medications Generic Name Dose Route Start Last Admin Trade Name Freq PRN Reason Stop Dose Admin Gabapentin 200 mg 06/18/22 23:39 06/19/22 00:14 Gabapentin 100 Mg Cap PO 07/18/22 23:38 200 mg HS NATALEE Administration Lorazepam 0.5 mg 06/18/22 20:25 06/18/22 20:41 Lorazepam 0.5 Mg Tab PO 07/18/22 20:24 0.5 mg TID PRN Administration Anxiety Miscellaneous 1 each 06/19/22 00:00 06/19/22 08:49 Order Awaiting Action: Vibegron [Gemtesa] 75 Mg Tablet N/A 07/19/22 00:00 Not Given QS NATALEE Morphine Sulfate 2 mg 06/18/22 20:24 06/19/22 05:48 Morphine Sulfate 2 Mg/Ml Carp IV 07/02/22 20:23 2 mg Q3H PRN Administration Pain Trazodone HCl 150 mg 06/18/22 23:39 06/19/22 00:14 Trazodone Hcl 50 Mg Tab PO 07/18/22 23:38 150 mg HS NATALEE Administration NPO Date Last Intake of Fluids: 06/18/22 Time Last Intake of Fluids: 23:59 Date Last Intake of Solids: 06/18/22 Time Last Intake of Solids: 23:59 Past Medical History Medical History Acid reflux controlled Anxiety JAYJAY II (cervical intraepithelial neoplasia II) "resolved" Depression DJD (degenerative joint disease) Hyperlipidemia Migraine Osteoarthritis Past Family History Family History Aunt Breast cancer Throat cancer Son Diabetes Father Cardiac disorder Mother Slow to wake up after anesthesia Diabetes Uncle Throat cancer Past Surgical History Surgical History History of arthroscopy R/L knee History of cataract surgery R/L History of colonoscopy History of dilatation and curettage History of open reduction and internal fixation (ORIF) procedure right ankle History of tooth extraction implants Hx of colposcopy with cervical biopsy Social History Smoking Status: Never smoker Hx Alcohol Use: No Hx Substance Use: Yes substance use type: marijuana Substance Use Type Other:: Marijuana use rare (vape/pipe)- every few months/advised [facility] protocol Last Used Substance: Days (ago) Physical Exam Vital Signs Last Vital Signs Temp 36.9 C 06/19/22 08:29 Pulse 62 06/19/22 08:29 Resp 16 06/19/22 08:29 BP 116/72 06/19/22 08:29 Pulse Ox 96 06/19/22 08:29 O2 Del Method Room Air 06/19/22 08:29 Testing Laboratory Results 06/19/22 05:37 06/19/22 05:37 Blood Type B Positive 06/19/22 05:37 Antibody Screen NEGATIVE 06/19/22 05:37 Electrocardiogram Date: 05/10/22 Findings: + poor R wave progression and + SB @ (55)
[2022-06-19] MEDS ORDERED: PROMETHAZINE HCL 6.25 MG in SODIUM CHLORIDE 0.9% 50 ML IV PRN (10:03)
[2022-06-19] MEDS ORDERED: ATROPINE SULFATE 0.1 MG/ML 10ML SYR IV PRN (10:03)
[2022-06-19] MEDS ORDERED: ONDANSETRON INJ 2 MG/ML 2 ML VIAL IV PRN (10:03)
[2022-06-19] MEDS ORDERED: MIDAZOLAM HCL 1 MG/ML 2ML VIAL ONE (10:34)
[2022-06-19] MEDS ORDERED: fentaNYL citrate PF 100 MCG/2 ML VIAL ONE (10:35)
[2022-06-19] MEDS ORDERED: LIDOCAINE 2% MPF LOCAL 5 ML VIAL ONE (10:36)
[2022-06-19] MEDS ORDERED: DEXAMETHASONE SOD INJ 4 MG/ML VIAL ONE ×2 (10:37→12:00)
[2022-06-19] MEDS ORDERED: PROPOFOL IV EMULSION 10 MG/ML 20 ML VIAL IV ONE (10:37)
[2022-06-19] MEDS ORDERED: BUPIVACAINE 0.5 % 5 MG/1 ML MPF 30ML VIAL ONE (10:46)
[2022-06-19] MEDS ORDERED: ceFAZolin 330 MG/ML 1 GM VIAL ONE (10:54)
[2022-06-19] MEDS ORDERED: ONDANSETRON INJ 2 MG/ML 2 ML VIAL ONE (10:54)
[2022-06-19] MEDS ORDERED: ePHEDrine sulfate 50 MG/ML SYR ONE (11:39)
[2022-06-19] MEDS ORDERED: PHENYLEPHRINE 100MCG/ML 5ML SYR ONE (11:39)
[2022-06-19] MEDS ORDERED: ceFAZolin 2000MG 2,000 MG/15 ML SYR IV ONE (11:55)
[2022-06-19] MEDS ORDERED: FAMOTIDINE/PF 20 MG/2 ML VIAL IV ONE (11:58)
[2022-06-19] MEDS ORDERED: ACETAMINOPHEN 1000 MG/100 ML IV IV ONE (11:59)
[2022-06-19] MEDS ORDERED: SUGAMMADEX SODIUM 200 MG/2 ML VIAL IV ONE (11:59)
[2022-06-19] MEDS ORDERED: KETOROLAC 30 MG/ML VIAL ONE (12:04)
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
--- NOTE | 2022-06-19 12:39 | Operative Report ---
Post Operative Report Pre & Post Diagnosis Operation Date: 06/19/22 10:00 Pre-Op Diagnosis: Intertrochanteric fracture of left femur Post-Op Diagnosis: Intertrochanteric fracture of left femur I identified the patient and participated in the time-out.: Yes Procedure Operation Date: 06/19/22 10:00 Actual Procedures p Intramedullary Gus Femur(Left) - Gerardo Ferrari MD Surgeon [facility] Tuber Machine Cutter Esdras Woodson DO Estimated Blood Loss 100 Findings Consistent with Post-Op Diagnosis Specimens None Description of Procedure Patient was taken to the operating room where anesthesia was administered. Patient was prepped and draped in the usual sterile fashion. Please see attending's operative report for specifics of the procedure. I was present for the entire case from initial patient positioning through final wound closure. Assistance was provided in tissue retraction, hemostasis, and final wound closure. Patient was taken to the recovery room in satisfactory condition. I attest to the content of the Intraoperative Record and any orders documented therein. Any exceptions are noted below.
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
[2022-06-19] MEDS: HYDROmorphone INJ 1 MG/ML SYRINGE IV PRN ×4 (13:52→14:07)
--- NOTE | 2022-06-19 14:02 | Anesthesiology Progress Note ---
Date of Service June 19, 2022 Anesthesia Post Procedure Vital Signs Vital Signs: Temp Pulse Pulse Pulse Resp BP BP 06/19/22 13:50 78 13 132/69 06/19/22 13:40 80 15 143/78 H 06/19/22 13:30 74 16 135/69 06/19/22 13:20 77 16 145/83 H 06/19/22 13:10 36.8 C 80 14 140/69 06/19/22 13:00 81 12 147/81 H 06/19/22 12:50 79 13 152/68 H 06/19/22 12:40 36.3 C L 77 22 142/76 H 06/19/22 08:29 36.9 C 62 16 06/18/22 23:30 36.7 C 61 16 06/18/22 22:31 74 16 121/74 06/18/22 20:00 70 16 06/18/22 19:00 64 18 06/18/22 18:51 65 20 06/18/22 17:43 37.5 C 66 16 150/90 H BP Pulse Ox O2 Del Method O2 Flow Rate 06/19/22 13:50 98 Nasal Cannula 2 06/19/22 13:40 96 Nasal Cannula 2 06/19/22 13:30 96 Nasal Cannula 2 06/19/22 13:20 94 Nasal Cannula 2 06/19/22 13:10 93 Room Air 06/19/22 13:00 99 Oxymask 4 06/19/22 12:50 99 Oxymask 6 06/19/22 12:40 100 Oxymask 6 06/19/22 08:29 116/72 96 Room Air 06/18/22 23:30 137/75 98 Room Air 06/18/22 22:31 94 Room Air 06/18/22 20:00 143/83 H 98 Room Air 06/18/22 19:00 152/120 H 97 Room Air 06/18/22 18:51 157/75 H 100 Room Air 06/18/22 17:43 99 Room Air Pain Intensity Left Hip: Pain Intensity: 5 Transfer of Care Handoff Completed per policy Notes Mental Status: alert / awake / arousable Patient Amnestic to Procedure: Yes Nausea / Vomiting: adequately controlled Pain: adequately controlled Airway Patency, RR, SpO2: stable & adequate BP & HR: stable & adequate Hydration State: stable & adequate Anesthetic Complications: no major complications apparent
--- NOTE | 2022-06-19 14:14 | XRay Report ---
XR femur LT 2V routine HISTORY: 62 years-old Female post op eval status post placement of a left intratrochanteric nail COMPARISON: Fluoroscopic images of the left femur of same day, pelvis and hip radiographs 06/18/2022 TECHNIQUE: 2 views of the left femur FINDINGS: Status post placement of an intratrochanteric nail with medullary ian fixating the acute intertrochan teric fracture of the left femur. Satisfactory alignment with expected postoperative soft tissue swel ling with deep tissue air. Total knee arthroplasty is partially imaged. IMPRESSION: Satisfactory alignment of the acute left proximal femoral fracture status post ORIF. ACT 112: Negative or not required by law. The above report was generated using voice recognition software. It may contain grammatical, syntax o r spelling errors. Electronically signed by: Eduin Epstein M.D. 06/19/2022 2:13 PM
[2022-06-19] MEDS: SERTRALINE HCL 100 MG TABLET PO SCH (15:03)
[2022-06-19] MEDS: ARIPiprazole 15 MG TAB PO SCH (15:03)
[2022-06-19] MEDS: lamoTRIgine 100 MG TAB PO SCH (15:03)
[2022-06-19] MEDS: buPROPion XL 150 MG TABCR PO SCH (15:03)
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
[2022-06-19] MEDS: ceFAZolin 1000MG 1,000 MG/7.5 ML SYR IV SCH (18:26)
[2022-06-20] MEDS: MoRPHine SULFATE 2 MG/ML CARP IV PRN ×3 (00:36→09:26)
[2022-06-20] MEDS: ceFAZolin 1000MG 1,000 MG/7.5 ML SYR IV SCH (03:45)
[2022-06-20 06:27] LABS: Basophils # (auto) 0.01 K/uL (0-0.2); Basophils % (auto) 0.1 %; Hematocrit (blood only) 34.2 % (37.0-47.0); Hemoglobin 11.7 g/dl (12.0-16.0); Immature Granulocytes # (auto) 0.19 K/uL (0.01-0.20); Immature Granulocytes % (auto) 1.7 %; Lymphocytes # (auto) 1.42 K/uL (1.2-3.4); Lymphocytes % (auto) 12.5 %; Mean Corpuscular Hemoglobin 32.2 pg (25.0-34.0); Mean Corpuscular Hgb Conc 34.2 g/dL (32.0-36.0); Mean Corpuscular Volume 94.2 fL (80.0-100.0); Mean Platelet Volume 9.9 fL (9.4-12.4); Monocytes # (auto) 0.83 K/uL (0.11-0.59); Monocytes % (auto) 7.3 %; Neutrophils # (auto) 8.93 K/uL (1.40-6.50); Neutrophils % (auto) 78.4 %; Platelet Count 201 K/uL (130-400); RDW Coefficient of Variation 12.2 % (11.5-14.5); RDW Standard Deviation 42.7 fL (36.4-46.3); Red Blood Count 3.63 M/uL (4.20-5.40); White Blood Count 11.38 K/ul (4.8-10.8)
[2022-06-20 06:42] LABS: BUN Creatinine Ratio 18.8 (10-20); Calcium 8.5 mg/dl (8.6-10.3); Creatinine Clr Calc Pharmacy 59.9 ml/min; Est GFR (African American) 73.5 ml/min; Est GFR (Non-African American) 63.4 ml/min; Potassium 3.8 mmol/L (3.5-5.1)
[2022-06-20] MEDS: traMADol HCL 50 MG TABLET PO PRN (07:23)
[2022-06-20] MEDS: buPROPion XL 150 MG TABCR PO SCH (07:24)
[2022-06-20] MEDS: lamoTRIgine 100 MG TAB PO SCH (07:24)
[2022-06-20] MEDS: SERTRALINE HCL 100 MG TABLET PO SCH (07:24)
[2022-06-20] MEDS: ASPIRIN 325 MG ECTAB PO SCH ×2 (07:24→20:41)
[2022-06-20] MEDS: ARIPiprazole 15 MG TAB PO SCH (07:24)
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
[2022-06-20] MEDS ORDERED: IBUPROFEN 800 MG TAB PO PRN (08:57)
--- NOTE | 2022-06-20 09:04 | XRay Report ---
XR pelvis 1-2V routine HISTORY: 62 years-old Female post op eval acute fracture of the proximal left femur COMPARISON: 06/18/2022 TECHNIQUE: AP view of the pelvis FINDINGS: Mild osteophyte is of the hips. Status post placement of an intratrochanteric nail with medullary ian fixating the acute proximal left femoral fracture which demonstrates satisfactory alignment. The huber dware appears intact however is only partially imaged. Expected postoperative soft tissue swelling wi th deep tissue air. IMPRESSION: ORIF of the acute left proximal femoral fracture with satisfactory alignment. ACT 112: Negative or not required by law. The above report was generated using voice recognition software. It may contain grammatical, syntax o r spelling errors. Electronically signed by: Eduin Epstein M.D. 06/20/2022 9:03 AM
[2022-06-20] MEDS: oxyCODONE HCL IR 5 MG TAB (IMMEDIATE RELEASE) PO PRN ×3 (12:28→20:47)
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
[2022-06-20] MEDS: traZODone HCL 50 MG TAB PO SCH (20:40)
[2022-06-20] MEDS: VIBEGRON 75 MG TAB PO SCH (20:40)
[2022-06-20] MEDS: GABAPENTIN 100 MG CAP PO SCH (20:41)
[2022-06-21] MEDS: oxyCODONE HCL IR 5 MG TAB (IMMEDIATE RELEASE) PO PRN ×5 (05:17→22:40)
[2022-06-21 06:23] LABS: Basophils # (auto) 0.02 K/uL (0-0.2); Basophils % (auto) 0.3 %; Eosinophils # (auto) 0.05 K/uL (0-0.50); Eosinophils % (auto) 0.7 %; Hematocrit (blood only) 29.5 % (37.0-47.0); Hemoglobin 9.9 g/dl (12.0-16.0); Immature Granulocytes # (auto) 0.02 K/uL (0.01-0.20); Immature Granulocytes % (auto) 0.3 %; Lymphocytes # (auto) 1.55 K/uL (1.2-3.4); Lymphocytes % (auto) 22.5 %; Mean Corpuscular Hemoglobin 31.9 pg (25.0-34.0); Mean Corpuscular Hgb Conc 33.6 g/dL (32.0-36.0); Mean Corpuscular Volume 95.2 fL (80.0-100.0); Mean Platelet Volume 9.4 fL (9.4-12.4); Monocytes # (auto) 0.63 K/uL (0.11-0.59); Monocytes % (auto) 9.2 %; Neutrophils # (auto) 4.61 K/uL (1.40-6.50); Platelet Count 151 K/uL (130-400); RDW Coefficient of Variation 12.4 % (11.5-14.5); RDW Standard Deviation 42.8 fL (36.4-46.3); White Blood Count 6.88 K/ul (4.8-10.8)
[2022-06-21 06:41] LABS: BUN Creatinine Ratio 19.5 (10-20); Calcium 8.3 mg/dl (8.6-10.3); Creatinine Clr Calc Pharmacy 70.1 ml/min; Est GFR (African American) 88.9 ml/min; Est GFR (Non-African American) 76.7 ml/min; Potassium 3.9 mmol/L (3.5-5.1)
[2022-06-21] MEDS: traMADol HCL 50 MG TABLET PO PRN ×2 (08:17→12:12)
[2022-06-21] MEDS: ARIPiprazole 15 MG TAB PO SCH (09:00)
[2022-06-21] MEDS: lamoTRIgine 100 MG TAB PO SCH (09:00)
[2022-06-21] MEDS: SERTRALINE HCL 100 MG TABLET PO SCH (09:00)
[2022-06-21] MEDS: ASPIRIN 325 MG ECTAB PO SCH ×2 (09:00→20:54)
[2022-06-21] MEDS: buPROPion XL 150 MG TABCR PO SCH (09:01)
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
--- NOTE | 2022-06-21 16:33 | Orthopedic Progress Note ---
Date of Service June 21, 2022 Assessment & Plan (1) Intertrochanteric fracture of left femur: Plan: Patient is postop day 2. She is doing well. She will continue with weightbearing as tolerated in the left lower extremity with walker. Continue with PT and OT. No dressing was changed today by myself over patient reported nursing did change the more proximal dressing She will continue with elevating the left lower extremity while in bed. Recommend aspirin for DVT prophylaxis. From an orthopedic standpoint, she can discharge home when she passes physical therapy and her pain is well controlled on oral medications. Follow-up with [facility] 2 weeks after discharge with x-rays. Present on Admission?: Yes Admission and Anticipated Discharge Date Admission Date: June 18, 2022 Subjective Patient is a 62-year-old female who is status post a left intertrochanteric femoral nail fixation postop day #2. She is seen bedside this afternoon. She is lying in bed watching television. She is alert and oriented x3. She states she is doing okay. She states she has mild pain at rest like a dull ache and this increases when she tries to move the leg. She states she did participate in physical therapy today. She states she was using the walker and putting some weight on it. She states the therapist told her she needed to put more weight on it because she was is walking on her tiptoe. She states the pain is controlled with the narcotic. She denies any paresthesia in the leg. She denies any fever chills, chest pain, shortness of breath or calf pain. She is hoping to be able to return home in the next day or so. Review of Systems Review of Systems: Please refer to HPI Physical Exam Physical Exam: General: Patient is alert and oriented x3 no acute distress pleasant conversive Integumentary/musculoskeletal: Left lower extremity is normal in color and temperature. Negative for edema. 3 dressings are intact negative for any soiling. She has palpable tenderness over the lateral aspect of the left hip which is to be anticipated. She tolerates gentle active range of motion knee fl exion and hip flexion. She needs some assistance to do a straight leg raise on the left lower extremity. She tolerates gentle passive internal and external rotation of the hip. Calf is soft and nontender. Dorsal pedis pulse 2. Results & Data Vital Signs (Past 12 Hours) Vital Signs Temp Pulse Resp BP Pulse Ox O2 Del Method 06/21/22 15:24 36.8 C 66 18 111/70 95 Room Air 06/21/22 07:44 36.8 C 71 18 126/69 94 Room Air Laboratory Results 06/21/22 06/21/22 Range/Units 05:55 05:55 WBC 6.88 (4.8-10.8) K/ul RBC 3.10 L (4.20-5.40) M/uL Hgb 9.9 L (12.0-16.0) g/dl Hct 29.5 L (37.0-47.0) % MCV 95.2 (80.0-100.0) fL MCH 31.9 (25.0-34.0) pg MCHC 33.6 (32.0-36.0) g/dL RDW Std Deviation 42.8 (36.4-46.3) fL RDW Coeff of Loren 12.4 (11.5-14.5) % Plt Count 151 (130-400) K/uL MPV 9.4 (9.4-12.4) fL Immature Gran % (Auto) 0.3 % Neut % (Auto) 67.0 % Lymph % (Auto) 22.5 % Kerr % (Auto) 9.2 % Eos % (Auto) 0.7 % Baso % (Auto) 0.3 % Neut # (Auto) 4.61 (1.40-6.50) K/uL Lymph # (Auto) 1.55 (1.2-3.4) K/uL Kerr # (Auto) 0.63 H (0.11-0.59) K/uL Eos # (Auto) 0.05 (0-0.50) K/uL Baso # (Auto) 0.02 (0-0.2) K/uL Immature Gran # (Auto) 0.02 (0.01-0.20) K/uL Sodium 139 (136-145) mmol/L Potassium 3.9 (3.5-5.1) mmol/L Chloride 105 (98-107) mmol/L Carbon Dioxide 29 (21-32) mmol/L Anion Gap 5 (3-11) BUN 16 (6-23) mg/dl Creatinine 0.82 (0.6-1.2) mg/dl Est Cr Clr Drug Dosing 70.1 ml/min Est GFR ( Amer) 88.9 ml/min Est GFR (Non-Af Amer) 76.7 ml/min BUN/Creatinine Ratio 19.5 (10-20) Glucose 100 H (70-99(Fasting)) mg/dl Calcium 8.3 L (8.6-10.3) mg/dl
[2022-06-21] MEDS: IBUPROFEN 800 MG TAB PO SCH ×2 (17:52→22:01)
[2022-06-21] MEDS: GABAPENTIN 100 MG CAP PO SCH (20:52)
[2022-06-21] MEDS: VIBEGRON 75 MG TAB PO SCH (20:54)
[2022-06-21] MEDS: traZODone HCL 50 MG TAB PO SCH (20:54)
[2022-06-22] MEDS: oxyCODONE HCL IR 5 MG TAB (IMMEDIATE RELEASE) PO PRN ×4 (06:01→19:41)
[2022-06-22] MEDS: traMADol HCL 50 MG TABLET PO PRN (07:41)
[2022-06-22] MEDS: ASPIRIN 325 MG ECTAB PO SCH ×2 (08:31→20:56)
[2022-06-22] MEDS: IBUPROFEN 800 MG TAB PO SCH ×3 (08:31→20:56)
[2022-06-22] MEDS: lamoTRIgine 100 MG TAB PO SCH (08:31)
[2022-06-22] MEDS: ARIPiprazole 15 MG TAB PO SCH (08:32)
[2022-06-22] MEDS: SERTRALINE HCL 100 MG TABLET PO SCH (08:32)
[2022-06-22] MEDS: buPROPion XL 150 MG TABCR PO SCH (08:32)
--- NOTE | 2022-06-22 09:06 | Orthopedic Progress Note ---
Date of Service June 22, 2022 Assessment & Plan (1) Intertrochanteric fracture of left femur: Plan: Patient is postop day #3. She is doing well. She will continue with weightbearing as tolerated in the left lower extremity with walker She has NO hip precautions Continue with PT and OT. Proximal dressing was changed today. Other dressings are intact without soiling. She will continue with elevating the left lower extremity while in bed. Recommend aspirin for DVT prophylaxis. From an orthopedic standpoint, she can discharge home when she passes physical therapy and her pain is well controlled on oral medications. Follow-up in our office on 07/07/2022 with imaging. Present on Admission?: Yes Admission and Anticipated Discharge Date Admission Date: June 18, 2022 Subjective Patient is a 62-year-old female who is postop day #3 status post a left intertrochanteric nail fixation. She is seen bedside this AM. She is alert and oriented x3 pleasant and conversive. She states she has been doing better since yesterday. She does report getting up herself and going to the bathroom as well as walking the lopez. She states she is able to put more weight on the left lower extremity. She states her pain is about 78/10 with activities. She denies any pain at this time. She did not yet participate in physical therapy. She is unsure about going home. She states the pain medication is controlling her pain. She denies any calf pain. She states she is eating without any nausea or vomiting. She denies any fever, chills chest pain or shortness of breath. She offers no concerns. Review of Systems Review of Systems: Please refer to HPI Physical Exam Physical Exam: General: Patient is alert and oriented x3 no acute distress pleasant conversive Integumentary/musculoskeletal: Left lower extremity resolving ecchymosis over proximal hip which is to be anticipated. Otherwise left lower extremity is normal in color and temperature. Negative for edema. 3 dressings are intact more proximal dressing has soiling on it. This dressing was removed. Negative for any active bleeding or erythema surrounding the incision. The incision is well approximated with magaly. New dressing applied consisting of Xeroform gauze and Tegaderm. She continues to have palpable tenderness over the lateral aspect of the left hip which is to be anticipated. She is able to perform straight leg raise on the left today without assistance. She is able to tolerate hip and knee flexion without any complaints. She tolerates passive gentle internal and external rotation. Calf is soft and nontender. Dorsal pedis pulse 2. Results & Data Vital Signs (Past 12 Hours) Vital Signs Temp Pulse Resp BP BP Pulse Ox O2 Del Method 06/22/22 08:00 Room Air 06/22/22 07:21 36.7 C 61 18 117/68 95 Room Air 06/21/22 21:09 36.6 C 65 18 118/72 96 Room Air
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
[2022-06-22 19:15] LABS: Hematocrit (blood only) 28.7 % (37.0-47.0); Hemoglobin 9.9 g/dl (12.0-16.0)
[2022-06-22] MEDS: VIBEGRON 75 MG TAB PO SCH (20:55)
[2022-06-22] MEDS: GABAPENTIN 100 MG CAP PO SCH (20:56)
[2022-06-22] MEDS: traZODone HCL 50 MG TAB PO SCH (20:59)
[2022-06-23] MEDS: oxyCODONE HCL IR 5 MG TAB (IMMEDIATE RELEASE) PO PRN ×3 (01:19→10:51)
[2022-06-23 07:42] LABS: Mean Corpuscular Hemoglobin 31.8 pg (25.0-34.0); Mean Corpuscular Hgb Conc 34.5 g/dL (32.0-36.0); Mean Corpuscular Volume 92.4 fL (80.0-100.0); Mean Platelet Volume 9.6 fL (9.4-12.4); Platelet Count 206 K/uL (130-400); RDW Coefficient of Variation 12.1 % (11.5-14.5); RDW Standard Deviation 40.8 fL (36.4-46.3); Red Blood Count 3.14 M/uL (4.20-5.40); White Blood Count 4.76 K/ul (4.8-10.8)
[2022-06-23] MEDS: traMADol HCL 50 MG TABLET PO PRN (07:46)
[2022-06-23] MEDS: ASPIRIN 325 MG ECTAB PO SCH (08:29)
[2022-06-23] MEDS: SERTRALINE HCL 100 MG TABLET PO SCH (08:30)
[2022-06-23] MEDS: lamoTRIgine 100 MG TAB PO SCH (08:30)
[2022-06-23] MEDS: ARIPiprazole 15 MG TAB PO SCH (08:31)
[2022-06-23] MEDS: buPROPion XL 150 MG TABCR PO SCH (08:31)
[2022-06-23] MEDS: IBUPROFEN 800 MG TAB PO SCH (08:32)
[2022-06-23 09:09] LABS: BUN Creatinine Ratio 20.7 (10-20); Calcium 8.6 mg/dl (8.6-10.3); Creatinine Clr Calc Pharmacy 70.1 ml/min; Est GFR (African American) 88.9 ml/min; Est GFR (Non-African American) 76.7 ml/min
--- NOTE | 2022-06-23 09:47 | Orthopedic Progress Note ---
Date of Service June 23, 2022 Assessment & Plan (1) Intertrochanteric fracture of left femur: Plan: Patient is postop day #4. She is doing well. She will continue with weightbearing as tolerated in the left lower extremity with walker She has NO hip precautions Continue with PT and OT. Encouraged ROM of all lower extremity joints. She will continue with elevating the left lower extremity while in bed. Recommend aspirin for DVT prophylaxis. From an orthopedic standpoint, she can discharge home when she passes physical therapy and her pain is well controlled on oral medications. Case management for disposition needs. Follow-up in our office on 07/07/2022 with imaging. Admission and Anticipated Discharge Date Admission Date: June 18, 2022 Subjective Patient doing well. No significant complaints of pain today. She states she has been out of bed with physical therapy and her nurse. She has been using the walker. She has been taking ibuprofen, Tylenol, tramadol and oxycodone. She was supposed to go home yesterday but they did decide to keep her due to her increased pain in her left hip. She states this morning it does feel better. Pain medications have been helping. Physical Exam Musculoskeletal: Left hip dressings clean, dry and intact. Mild edema into her left thigh. No edema in her lower extremity or foot. Full ankle range of motion and strength. Distal pulses are 1+. Capillary fill is brisk and distal sensation is normal. No calf tenderness with palpation. Calf is supple. Full range of motion of the left knee. Tolerates logrolling of her left hip. She can actively do some flexion and abduction of the hip today. Results & Data Vital Signs (Past 12 Hours) Vital Signs Temp Pulse Resp BP BP Pulse Ox O2 Del Method 06/23/22 07:30 36.8 C 68 18 132/77 96 Room Air 06/22/22 22:10 36.6 C 62 18 120/70 96 Room Air
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
== END 2022-06-23 13:24 | disposition home health service (06) | DRG 482 ==
LOC: ED 17:28 → 3E 20:23 → SUPCPDRO 20:23 → SUATTDRO 20:23 → 3E 22:31